=== PATIENT | male | born 1995 | race Caucasian/White ===

== ENCOUNTER 2019-08-09 22:55 | Emergency (ER) | payer BC ==
[~2019-08-09] VITALS: Ht 180.3 cm; Wt 77.3 kg
[2019-08-10 01:29] VITALS: TEMP 98.8
[2019-08-10 02:06] VITALS: BP 125/66; PULSE 75
[2019-08-10] MEDS ORDERED: ZOFRAN ODT4 MG PO (17:47)
== END 2019-08-10 02:06 | disposition home or self-care (01) ==
LOC: COL.ER 22:55
DX: B34.9 Viral infection, unspecified (principal)
CPT/HCPCS: J1885; J7030

== ENCOUNTER 2019-11-19 09:36 | Emergency (ER) | payer BC ==
[~2019-11-19] VITALS: Ht 180.3 cm; Wt 75.0 kg
[~2019-11-19 09:36] MED LIST: ZOFRAN ODT4 MG PO
[2019-11-19 09:41] VITALS: TEMP 99.7
[2019-11-19 10:21] LABS: BASO % 0.3 % (0.0-2.0); EOS % 0.2 % (0-4.0); GRAN # 10.9 (1.4-6.5); GRAN % 80.1 % (42.2-75.2); HEMATOCRIT 45.6 % (42.0-52.0); HEMOGLOBIN 16.1 g/dl (13.5-18.0); LYMPH # 1.2 (1.2-3.4); LYMPH % 8.4 % (20.0-51.0); MEAN CELL VOLUME 87 fl (80.0-100.0); MEAN CORPUSCULAR HEMOGLOBIN 31 pg (27.0-31.0); MEAN CORPUSCULAR HGB CONC 35 g/dl (33.0-37.0); MEAN PLATELET VOLUME 10.4 fl (7.4-10.4); MONO # 1.4 (0.1-0.6); MONO % 10.5 % (1.7-9.3); PLATELET COUNT 206 K/mm3 (130-400); RED BLOOD COUNT 5.25 M/mm3 (4.20-5.60); REDCELL DISTRIBUTION WIDTH-CV 12.4 % (11.5-14.5)
[2019-11-19 10:32] LABS: ALBUMIN 4.1 gm/dL (3.5-5.0); BILIRUBIN,TOTAL 0.8 mg/dL (0.0-1.0); CALCIUM 9.5 mg/dL (8.4-10.2); CREATININE, serum 1.17 (0.66-1.25); POTASSIUM 3.8 mmol/L (3.4-5.0)
[2019-11-19] MEDS ORDERED: PHENERGAN 25 TA25 MG PO (13:18)
[2019-11-19] MEDS ORDERED: ZOFRAN 4MG T4 MG/TAB PO (13:18)
[2019-11-19 13:34] VITALS: BP 115/76; PULSE 81
== END 2019-11-19 13:34 | disposition home or self-care (01) ==
LOC: COL.ER 09:36
PROVIDERS: Nurse Practitioner Primary Care
DX: R11.2 Nausea with vomiting, unspecified (principal); R10.9 Unspecified abdominal pain; F17.210 Nicotine dependence, cigarettes, uncomplicated; Z20.828 Contact with and (suspected) exposure to other viral communicable diseases
CPT/HCPCS: J2270; J2405; J7030; Q9967

== ENCOUNTER 2020-05-15 13:51 | Emergency (ER) | payer BC ==
[~2020-05-15] VITALS: Ht 180.3 cm; Wt 81.8 kg
[~2020-05-15 13:51] MED LIST changes: +PHENERGAN 25 TA25 MG PO; +ZOFRAN 4MG T4 MG/TAB PO
[2020-05-15 13:55] VITALS: TEMP 99.5
[2020-05-15 15:54] LABS: BASO % 0.3 % (0.0-2.0); EOS % 0.1 % (0-4.0); GRAN # 9.4 (1.4-6.5); GRAN % 81.9 % (42.2-75.2); HEMOGLOBIN 16.6 g/dl (13.5-18.0); LYMPH % 8.3 % (20.0-51.0); MEAN CELL VOLUME 88 fl (80.0-100.0); MEAN CORPUSCULAR HEMOGLOBIN 31 pg (27.0-31.0); MEAN CORPUSCULAR HGB CONC 35 g/dl (33.0-37.0); MEAN PLATELET VOLUME 10.1 fl (7.4-10.4); PLATELET COUNT 220 K/mm3 (130-400); RED BLOOD COUNT 5.36 M/mm3 (4.20-5.60); REDCELL DISTRIBUTION WIDTH-CV 11.9 % (11.5-14.5)
[2020-05-15 16:07] LABS: ALBUMIN 4.2 gm/dL (3.5-5.0); BILIRUBIN,TOTAL 0.8 mg/dL (0.0-1.0); CALCIUM 9.6 mg/dL (8.4-10.2); CREATININE, serum 1.21 (0.66-1.25); POTASSIUM 3.9 mmol/L (3.4-5.0); TOTAL PROTEIN 7.7 gm/dL (6.4-8.2)
[2020-05-15 19:02] VITALS: BP 129/81; PULSE 86
== END 2020-05-15 18:38 | disposition home or self-care (01) ==
LOC: COL.ER 13:51
PROVIDERS: Emergency Medicine
DX: B34.9 Viral infection, unspecified (principal); Z20.828 Contact with and (suspected) exposure to other viral communicable diseases
CPT/HCPCS: J1885; J7030